=== PATIENT | female | born 1985 | race Caucasian/White ===

== ENCOUNTER 2022-02-25 14:09 | Outpatient (CLI) | payer BC ==
[~2022-02-25 14:09] MED LIST: LIPITOR TAB 1010 MG PO; PROGESTERONE100 MG PO; TAMIFLU75 MG PO; TOPROL XL50 MG PO
[2022-02-26] MEDS ORDERED: PYRIDIUM200 MG PO (12:14)
[2022-02-26] MEDS ORDERED: MACROBID 100 M100 MG PO (12:14)
== END 2022-02-26 12:43 | disposition home or self-care (01) ==
LOC: GENOP 14:09
DX: O26.832 Pregnancy related renal disease, second trimester (principal); N20.0 Calculus of kidney; Z20.822 Contact with and (suspected) exposure to COVID-19; Z3A.25 25 weeks gestation of pregnancy
CPT/HCPCS: 59025; 81001; 87086; 96361; 96365; 96366; 96367; 96368; 96374; J0690; J2270; J7120; U0002